=== PATIENT | male | born 1965 | race Caucasian/White ===

== ENCOUNTER 2022-01-13 12:56 | Inpatient (IN) | payer MEDICARE ==
[~2022-01-13] VITALS: Ht 172.7 cm; Wt 117.0 kg
[2022-01-13 14:18] LABS: HEMATOCRIT. 21.3 % (42.0-52.0); MEAN CORPUSCULAR HEMOGLOBIN 28.3 pg (28.0-32.0); MEAN CORPUSCULAR VOLUME 87.2 fL (80.0-94.0); MEAN PLATELET VOLUME 8.9 fl (7.4-10.4); PLATELET 150 x1000/uL (130-400); RED BLOOD CELL COUNT 2.44 mill/uL (4.7-6.1); RED CELL DISTRIBUTION WIDTH 15.1 % (11.6-14.6)
[2022-01-13 14:21] LABS: HEMOGLOBIN. 6.9 g/dL (14.0-18.0)
[2022-01-13 14:30] LABS: INR 1.2; PROTHROMBIN TIME 12.3 sec (9.6-11.0)
[2022-01-13 14:32] LABS: CHLORIDE 100 mEq/L (98-107)
[2022-01-13 15:09] LABS: PLATELET ESTIMATE NORMAL
[2022-01-13] MEDS ORDERED: MANNITOL 12.5G (25%) VIAL 50ML IV NR (17:00)
[2022-01-13] MEDS ORDERED: ASPIRIN 81MG TABLET PO NR (17:15)
[2022-01-13] MEDS ORDERED: LORAZEPAM 1MG TABLET PO PRN (17:15)
[2022-01-13 17:40] VITALS: BP 142/71
[2022-01-13] MEDS ORDERED: CEFTRIAXONE 1 G PREMIX 50 ML IV ONE (18:00)
[2022-01-13] MEDS ORDERED: CARVEDILOL 12.5MG TABLET PO NR (18:00)
[2022-01-13] MEDS: CLOPIDOGREL 75MG TABLET PO SCH (18:29)
[2022-01-13 20:00] VITALS: BP_SYST 155; BP_SYST 185; BP_DIAS 60; BP_DIAS 87
[2022-01-13] MEDS ORDERED: CEFTRIAXONE 1,000 MG in DEXTROSE 5% WATER 50 ML IV SCH (20:00)
[2022-01-13 21:02] LABS: HEMATOCRIT 20.1 % (42.0-52.0); HEMOGLOBIN 6.6 g/dL (14.0-18.0)
[2022-01-13 21:36] LABS: HEPATITIS B SURFACE ANTIGEN NEGATIVE
[2022-01-13 22:55] VITALS: BP 153/61
[2022-01-13 23:10] VITALS: BP 155/60
[2022-01-14] VITALS (10 sets, daily range): BP systolic 104–185; BP diastolic 59–87
[2022-01-14] MEDS: FUROSEMIDE 20MG TABLET PO SCH ×3 (00:25→20:43)
[2022-01-14] MEDS: ATORVASTATIN CALCIUM 20MG TABLET PO SCH ×2 (00:25→20:43)
[2022-01-14] MEDS: HYDRALAZINE HCL 10MG TABLET PO SCH ×4 (00:25→22:00)
[2022-01-14 00:57] LABS: HEMATOCRIT 22.6 % (42.0-52.0); HEMOGLOBIN 7.8 g/dL (14.0-18.0)
[2022-01-14 01:49] LABS: INR 1.1; PROTHROMBIN TIME 11.9 sec (9.6-11.0)
[2022-01-14] MEDS: PANTOPRAZOLE 40MG DR TABLET PO SCH (06:23)
[2022-01-14 06:49] LABS: MEAN CORPUSCULAR HEMOGLOBIN 28.4 pg (28.0-32.0); MEAN CORPUSCULAR VOLUME 85.3 fL (80.0-94.0); MEAN PLATELET VOLUME 8.8 fl (7.4-10.4); PLATELET 148 x1000/uL (130-400); RED BLOOD CELL COUNT 2.45 mill/uL (4.7-6.1); RED CELL DISTRIBUTION WIDTH 14.6 % (11.6-14.6)
[2022-01-14 06:51] LABS: CHLORIDE 101 mEq/L (98-107)
[2022-01-14 06:55] LABS: HEMATOCRIT. 20.9 % (42.0-52.0); HEMOGLOBIN. 6.9 g/dL (14.0-18.0)
[2022-01-14 07:09] LABS: CREATINE KINASE 549 IU/L (39-308); PHOSPHORUS 6.6 mg/dL (2.5-4.9)
[2022-01-14] MEDS ORDERED: CARVEDILOL 12.5MG TABLET PO SCH (08:00)
[2022-01-14] MEDS: LOSARTAN POTASSIUM 25 MG TABLET PO SCH (09:00)
[2022-01-14] MEDS: ISOSORBIDE DINITRATE 10MG TABLET PO SCH ×3 (09:00→18:41)
[2022-01-14] MEDS: CLOPIDOGREL 75MG TABLET PO SCH (09:13)
[2022-01-14] MEDS: SEVELAMER CARBONATE 800 MG TABLET PO SCH ×3 (09:14→18:41)
[2022-01-14 10:16] LABS: PLATELET ESTIMATE NORMAL
[2022-01-14 17:47] LABS: MEAN CORPUSCULAR HEMOGLOBIN 28.7 pg (28.0-32.0); MEAN CORPUSCULAR VOLUME 85.3 fL (80.0-94.0); MEAN PLATELET VOLUME 8.3 fl (7.4-10.4); PLATELET 149 x1000/uL (130-400); RED BLOOD CELL COUNT 2.35 mill/uL (4.7-6.1)
[2022-01-14 17:51] LABS: HEMOGLOBIN. 6.8 g/dL (14.0-18.0)
[2022-01-14 17:52] LABS: HEMATOCRIT. 20.1 % (42.0-52.0)
[2022-01-14 22:20] LABS: PLATELET ESTIMATE NORMAL
[2022-01-15] VITALS: BP 131/61
[2022-01-15 02:40] LABS: HEMATOCRIT. 23.8 % (42.0-52.0); HEMOGLOBIN. 7.9 g/dL (14.0-18.0); MEAN CORPUSCULAR HEMOGLOBIN 28.5 pg (28.0-32.0); MEAN CORPUSCULAR VOLUME 85.8 fL (80.0-94.0); MEAN PLATELET VOLUME 8.3 fl (7.4-10.4); PLATELET 149 x1000/uL (130-400); RED BLOOD CELL COUNT 2.77 mill/uL (4.7-6.1); RED CELL DISTRIBUTION WIDTH 14.8 % (11.6-14.6)
[2022-01-15 03:30] LABS: INR 1.2; PROTHROMBIN TIME 12.5 sec (9.6-11.0)
[2022-01-15 04:00] VITALS: BP 144/81
[2022-01-15] MEDS: HYDRALAZINE HCL 10MG TABLET PO SCH ×3 (05:14→21:41)
[2022-01-15] MEDS: PANTOPRAZOLE 40MG DR TABLET PO SCH (06:11)
[2022-01-15 08:00] VITALS: BP 141/67
[2022-01-15 08:28] LABS: HEMOGLOBIN 7.9 g/dL (14.0-18.0)
[2022-01-15] MEDS ORDERED: CARVEDILOL 3.125 MG TABLET PO SCH (09:00)
[2022-01-15] MEDS: SEVELAMER CARBONATE 800 MG TABLET PO SCH ×3 (09:19→17:45)
[2022-01-15] MEDS: CLOPIDOGREL 75MG TABLET PO SCH (09:20)
[2022-01-15] MEDS: FUROSEMIDE 20MG TABLET PO SCH ×2 (09:20→21:41)
[2022-01-15] MEDS: ISOSORBIDE DINITRATE 10MG TABLET PO SCH ×3 (09:20→18:09)
[2022-01-15] MEDS: LOSARTAN POTASSIUM 25 MG TABLET PO SCH (09:20)
[2022-01-15 10:34] LABS: PLATELET ESTIMATE NORMAL
[2022-01-15 12:00] VITALS: BP 148/98
[2022-01-15] MEDS ORDERED: DOCUSATE SODIUM 100MG CAPSULE PO SCH (13:00)
[2022-01-15 16:00] VITALS: BP 117/79
[2022-01-15] MEDS: CARVEDILOL 6.25 MG TABLET PO SCH ×2 (17:45→21:41)
[2022-01-15 20:00] VITALS: BP 133/72
[2022-01-15 20:22] LABS: HEMATOCRIT 22.9 % (42.0-52.0); HEMOGLOBIN 7.4 g/dL (14.0-18.0)
[2022-01-15 20:46] LABS: TOTAL IRON BINDING CAPACITY 221 ug/dL (250-450)
[2022-01-15 21:13] LABS: FOLIC ACID (FOLATE) SERUM 4.6 ng/mL (>5.38)
[2022-01-15] MEDS: ATORVASTATIN CALCIUM 20MG TABLET PO SCH (21:40)
[2022-01-16] VITALS (9 sets, daily range): BP systolic 111–148; BP diastolic 67–86
[2022-01-16 03:05] LABS: BASOPHILS % 0.7 % (0.0-2.0); EOSINOPHILS % 2.9 % (0.0-5.0); HEMATOCRIT. 21.5 % (42.0-52.0); HEMOGLOBIN. 7.1 g/dL (14.0-18.0); LYMPHOCYTES % 9.1 % (20.0-50.0); MEAN CORPUSCULAR HEMOGLOBIN 28.4 pg (28.0-32.0); MEAN CORPUSCULAR VOLUME 86.1 fL (80.0-94.0); MEAN PLATELET VOLUME 7.8 fl (7.4-10.4); MONOCYTES % 13.7 % (2.0-8.0); NEUTROPHILS % 73.6 % (40.0-76.0); PLATELET 128 x1000/uL (130-400); RED BLOOD CELL COUNT 2.49 mill/uL (4.7-6.1)
[2022-01-16 03:15] LABS: INR 1.2; PROTHROMBIN TIME 12.4 sec (9.6-11.0)
[2022-01-16] MEDS: PANTOPRAZOLE 40MG DR TABLET PO SCH (05:45)
[2022-01-16] MEDS: HYDRALAZINE HCL 10MG TABLET PO SCH ×3 (05:46→21:36)
[2022-01-16] MEDS: ISOSORBIDE DINITRATE 10MG TABLET PO SCH ×3 (09:00→17:27)
[2022-01-16] MEDS: LOSARTAN POTASSIUM 25 MG TABLET PO SCH (09:00)
[2022-01-16] MEDS ORDERED: DOCUSATE SODIUM 100MG CAPSULE PO SCH (09:00)
[2022-01-16] MEDS: CARVEDILOL 6.25 MG TABLET PO SCH ×2 (09:00→21:36)
[2022-01-16] MEDS: DOCUSATE SODIUM 250MG CAPSULE PO SCH ×2 (11:13→17:28)
[2022-01-16] MEDS: SEVELAMER CARBONATE 800 MG TABLET PO SCH ×3 (11:13→17:30)
[2022-01-16] MEDS: FUROSEMIDE 20MG TABLET PO SCH ×2 (11:13→21:37)
[2022-01-16] MEDS: CLOPIDOGREL 75MG TABLET PO SCH (11:29)
[2022-01-16] MEDS ORDERED: PROPOFOL 200MG/20ML VIAL IV ONE (11:59)
[2022-01-16] MEDS ORDERED: ONDANSETRON HCL 4MG/2ML INJ ONE (12:00)
[2022-01-16] MEDS ORDERED: DEXAMETHASONE 4MG/ML 1ML VIAL ONE (12:00)
[2022-01-16] MEDS ORDERED: MIDAZOLAM HCL 2 MG/2 ML VIAL ONE (12:01)
[2022-01-16 16:28] LABS: HEMATOCRIT 24.3 % (42.0-52.0); HEMOGLOBIN 8.2 g/dL (14.0-18.0)
[2022-01-16 20:28] LABS: HEMATOCRIT 28.1 % (42.0-52.0)
[2022-01-16] MEDS: ATORVASTATIN CALCIUM 20MG TABLET PO SCH (21:36)
[2022-01-16] MEDS: EPOETIN ALFA-EPBX 4,000 UNIT/ML VIAL SUBCUT SCH (21:48)
[2022-01-16] MEDS: LORAZEPAM 2MG/ML CPJ IV PRN (23:00)
[2022-01-17] VITALS: BP 115/62
[2022-01-17 04:00] VITALS: BP 96/57
[2022-01-17] MEDS: HYDRALAZINE HCL 10MG TABLET PO SCH ×3 (06:00→21:26)
[2022-01-17 06:31] LABS: HEMATOCRIT. 25.7 % (42.0-52.0); HEMOGLOBIN. 8.6 g/dL (14.0-18.0); MEAN CORPUSCULAR HEMOGLOBIN 29.1 pg (28.0-32.0); MEAN CORPUSCULAR VOLUME 86.9 fL (80.0-94.0); MEAN PLATELET VOLUME 8.4 fl (7.4-10.4); PLATELET 156 x1000/uL (130-400); RED BLOOD CELL COUNT 2.95 mill/uL (4.7-6.1); RED CELL DISTRIBUTION WIDTH 14.6 % (11.6-14.6)
[2022-01-17] MEDS: PANTOPRAZOLE 40MG DR TABLET PO SCH (06:40)
[2022-01-17 08:00] VITALS: BP 119/70
[2022-01-17] MEDS: SEVELAMER CARBONATE 800 MG TABLET PO SCH ×3 (08:03→17:47)
[2022-01-17] MEDS: DOCUSATE SODIUM 250MG CAPSULE PO SCH ×2 (08:54→17:47)
[2022-01-17] MEDS: CLOPIDOGREL 75MG TABLET PO SCH (08:55)
[2022-01-17] MEDS: CARVEDILOL 6.25 MG TABLET PO SCH ×2 (08:55→21:00)
[2022-01-17] MEDS: ISOSORBIDE DINITRATE 10MG TABLET PO SCH ×3 (08:55→17:47)
[2022-01-17] MEDS: LOSARTAN POTASSIUM 25 MG TABLET PO SCH (08:55)
[2022-01-17] MEDS: FUROSEMIDE 20MG TABLET PO SCH ×2 (08:56→21:24)
[2022-01-17 12:00] VITALS: BP 111/78
[2022-01-17 16:00] VITALS: BP 127/74
[2022-01-17 16:48] LABS: PLATELET ESTIMATE NORMAL
[2022-01-17] MEDS: ASCORBIC ACID 500 MG TABLET PO SCH (17:47)
[2022-01-17] MEDS: FERROUS SULFATE 325MG TABLET PO SCH (17:47)
[2022-01-17] MEDS ORDERED: BACITRACIN 15GM TUBE TOP PRN (18:00)
[2022-01-17 20:00] VITALS: BP 108/50
[2022-01-17] MEDS: ATORVASTATIN CALCIUM 20MG TABLET PO SCH (21:24)
[2022-01-17] MEDS: LORAZEPAM 2MG/ML CPJ IV PRN (21:24)
[2022-01-18] VITALS (36 sets, daily range): BP systolic 74–171; BP diastolic 49–115
[2022-01-18 07:09] LABS: BASOPHILS % 0.5 % (0.0-2.0); HEMOGLOBIN. 7.9 g/dL (14.0-18.0); LYMPHOCYTES % 8.3 % (20.0-50.0); MEAN CORPUSCULAR HEMOGLOBIN 29.1 pg (28.0-32.0); MEAN CORPUSCULAR VOLUME 87.6 fL (80.0-94.0); MEAN PLATELET VOLUME 8.3 fl (7.4-10.4); MONOCYTES % 9.9 % (2.0-8.0); NEUTROPHILS % 79.3 % (40.0-76.0); PLATELET 147 x1000/uL (130-400); RED BLOOD CELL COUNT 2.73 mill/uL (4.7-6.1); RED CELL DISTRIBUTION WIDTH 14.6 % (11.6-14.6)
[2022-01-18] MEDS ORDERED: VECURONIUM BROMIDE 10 MG/VIAL IV ONE (08:08)
[2022-01-18] MEDS ORDERED: SODIUM CHLORIDE 0.9% 10ML VIAL ONE (08:08)
[2022-01-18] MEDS ORDERED: ETOMIDATE 2MG/ML 10ML VIAL IV ONE (08:08)
[2022-01-18] MEDS: DOCUSATE SODIUM 250MG CAPSULE PO SCH ×2 (08:32→17:00)
[2022-01-18] MEDS: ISOSORBIDE DINITRATE 10MG TABLET PO SCH ×3 (08:32→17:31)
[2022-01-18] MEDS: LOSARTAN POTASSIUM 25 MG TABLET PO SCH (08:32)
[2022-01-18] MEDS: SEVELAMER CARBONATE 800 MG TABLET PO SCH ×3 (08:32→17:31)
[2022-01-18] MEDS: FUROSEMIDE 20MG TABLET PO SCH ×2 (08:33→21:11)
[2022-01-18] MEDS: ASCORBIC ACID 500 MG TABLET PO SCH ×2 (08:39→17:31)
[2022-01-18] MEDS: FERROUS SULFATE 325MG TABLET PO SCH ×2 (08:39→17:31)
[2022-01-18] MEDS: PANTOPRAZOLE 40MG DR TABLET PO SCH (08:46)
[2022-01-18] MEDS ORDERED: NICARDIPINE 100MCG/ML 10ML VIAL (CATH LAB) IV ONE (08:48)
[2022-01-18] MEDS ORDERED: NITROGLYCERIN 50MCG/ML 10ML VIAL (CATH LAB) IV ONE (08:48)
[2022-01-18] MEDS: CLOPIDOGREL 75MG TABLET PO SCH (08:50)
[2022-01-18] MEDS ORDERED: IODIXANOL 320MG/ML 100 ML BOTTLE IV ONE ×2 (08:58→10:15)
[2022-01-18] MEDS ORDERED: DIPHENHYDRAMINE 50MG/ML VIAL ONE (08:58)
[2022-01-18] MEDS ORDERED: FENTANYL CITRATE/PF 50MCG/ML 2ML VIAL ONE (08:59)
[2022-01-18] MEDS ORDERED: HEPARIN SODIUM 1,000 UNIT/1ML VIAL IV ONE (08:59)
[2022-01-18] MEDS ORDERED: MIDAZOLAM HCL 2 MG/2 ML VIAL ONE ×2 (09:00→09:41)
[2022-01-18] MEDS: CARVEDILOL 6.25 MG TABLET PO SCH (09:00)
[2022-01-18] MEDS ORDERED: HEPARIN 1000 UNITS/ML 10ML ONE ×2 (09:06→10:16)
[2022-01-18] MEDS ORDERED: LIDOCAINE HCL/PF 1% 10 MG/ML 5ML VIAL ONE (09:13)
[2022-01-18] MEDS ORDERED: ACETAMINOPHEN 325MG TABLET PO PRN (11:00)
[2022-01-18] MEDS ORDERED: ATROPINE SULFATE 1MG/10ML SYR IV PRN (11:00)
[2022-01-18] MEDS ORDERED: PRAS10TA9 PO (11:34)
[2022-01-18] MEDS ORDERED: HYDR-4133 PO (11:35)
[2022-01-18] MEDS ORDERED: LOSA25TA26 PO (11:36)
[2022-01-18] MEDS ORDERED: FURO20TA4 PO (11:36)
[2022-01-18] MEDS ORDERED: ATOR80TA PO (11:37)
[2022-01-18] MEDS ORDERED: CARV6.2548 PO (11:37)
[2022-01-18] MEDS ORDERED: ASPI-1497 PO (11:38)
[2022-01-18] MEDS ORDERED: ISOS5TAB4 PO (11:38)
[2022-01-18] MEDS ORDERED: SERT25TA74 PO (11:38)
[2022-01-18] MEDS ORDERED: TRAZ-251 PO (11:48)
[2022-01-18] MEDS ORDERED: SEVE800T8 PO (11:49)
[2022-01-18] MEDS ORDERED: POTASSIUM CHLORIDE INJ 40 MEQ in DEXT 5% WATER 250 ML IV ONE (12:30)
[2022-01-18] MEDS ORDERED: POTASSIUM CHLORIDE 20MEQ TABLET SR PO ONE ×2 (12:30)
[2022-01-18] MEDS: HYDRALAZINE HCL 10MG TABLET PO SCH (13:29)
[2022-01-18] MEDS ORDERED: FENTANYL 2500MCG/250ML PMX 250 ML IV PRN (14:45)
[2022-01-18] MEDS ORDERED: PROPOFOL 10MG/ML 100ML 100 ML IV PRN (15:00)
[2022-01-18 15:33] LABS: BG BASE EXCESS -8.1 mmol/L (-2.0-2.0); BG CARBOXYHEMOGLOBIN 0.2 % (0.5-1.5); BG DEOXYHEMOGLOBIN 3.9 % (0.0-5.0); BG FRACTION INSPIRED OXYGEN 50; BG HCO3 ACT 19.1 mmol/L (22.0-26.0); BG METHEMOGLOBIN 0.1 % (0.0-1.5); BG OXYGEN SATURATION 96.1 % (92.0-98.5); BG OXYHEMOGLOBIN 95.8 % (94.0-97.0); BG PCO2 47.2 mmHg (35.0-45.0); BG PH 7.226 (7.350-7.450); BG PO2 105.4 mmHg (75.0-100.0); BG SAMPLE SITE LEFT RADIAL; BG TOTAL HEMOGLOBIN 9.8 g/dL (12.0-18.0); BG VENT MODE VENT - AC
[2022-01-18] MEDS: PROPOFOL 10MG/ML 100ML 100 ML IV PRN ×2 (15:33→18:57)
[2022-01-18] MEDS ORDERED: SODIUM BICARBONATE 8.4% 1 MEQ/ML 50ML SYR IV NR (15:45)
[2022-01-18 16:20] LABS: HEMATOCRIT. 27.1 % (42.0-52.0); HEMOGLOBIN. 8.7 g/dL (14.0-18.0); MEAN CORPUSCULAR HEMOGLOBIN 28.5 pg (28.0-32.0); MEAN CORPUSCULAR VOLUME 88.9 fL (80.0-94.0); MEAN PLATELET VOLUME 8.1 fl (7.4-10.4); PLATELET 239 x1000/uL (130-400); RED BLOOD CELL COUNT 3.05 mill/uL (4.7-6.1)
[2022-01-18] MEDS ORDERED: NOREPINEPHRINE 8 MG in DEXT 5% WATER 242 ML IV PRN (16:45)
[2022-01-18 20:25] LABS: PLATELET ESTIMATE NORMAL
[2022-01-18] MEDS: ATORVASTATIN CALCIUM 20MG TABLET PO SCH (21:11)
[2022-01-18] MEDS: EPOETIN ALFA-EPBX 4,000 UNIT/ML VIAL SUBCUT SCH (21:12)
[2022-01-19] MEDS ORDERED: IPRATROPIUM/ALBUTEROL 0.5-3(2.5)MG/3ML NEB HHN SCH
[2022-01-19] MEDS ORDERED: EPINEPHRINE 0.1MG/ML (1:10,000) 10ML SYR ONE (08:08)
[2022-01-19] MEDS ORDERED: CALCIUM CHLORIDE 1GM/10ML SYR IV ONE (08:08)
[2022-01-19] MEDS ORDERED: SODIUM BICARBONATE 8.4% 1 MEQ/ML 50ML SYR IV ONE (08:08)
[2022-01-19] MEDS ORDERED: DEXTROSE 50% WATER 50ML SYRINGE IV ONE (08:08)
== END 2022-01-19 03:00 | DRG 250 ==
LOC: ER 13:36 → 8WST 15:35 → ENRESERV 15:51 → 5EST 01-18 11:31 → CVICU 01-18 15:00
PROVIDERS: ADMIT Hospitalist; ATTEND Hospitalist
PROC: 30233N1 Transfusion of Nonautologous Red Blood Cells into Peripheral Vein, Percutaneous Approach (ICD-10-PCS; principal; 2022-01-13)
PROC: 5A1D70Z Performance of Urinary Filtration, Intermittent, Less than 6 Hours Per Day (ICD-10-PCS; 2022-01-13)
PROC: 5A1D70Z Performance of Urinary Filtration, Intermittent, Less than 6 Hours Per Day (ICD-10-PCS; 2022-01-14)
PROC: 0DB78ZX Excision of Stomach, Pylorus, Via Natural or Artificial Opening Endoscopic, Diagnostic (ICD-10-PCS; 2022-01-16)
PROC: 5A1D70Z Performance of Urinary Filtration, Intermittent, Less than 6 Hours Per Day (ICD-10-PCS; 2022-01-16)
PROC: 4A023N7 Measurement of Cardiac Sampling and Pressure, Left Heart, Percutaneous Approach (ICD-10-PCS; 2022-01-18)
PROC: 02703ZZ Dilation of Coronary Artery, One Artery, Percutaneous Approach (ICD-10-PCS; 2022-01-18)
PROC: B2111ZZ Fluoroscopy of Multiple Coronary Arteries using Low Osmolar Contrast (ICD-10-PCS; 2022-01-18)
PROC: 0BH17EZ Insertion of Endotracheal Airway into Trachea, Via Natural or Artificial Opening (ICD-10-PCS; 2022-01-18)
PROC: 5A1935Z Respiratory Ventilation, Less than 24 Consecutive Hours (ICD-10-PCS; 2022-01-18)
PROC: 5A12012 Performance of Cardiac Output, Single, Manual (ICD-10-PCS; 2022-01-18)
DX: T82.855A Stenosis of coronary artery stent, initial encounter (principal); I21.4 Non-ST elevation (NSTEMI) myocardial infarction; I50.23 Acute on chronic systolic (congestive) heart failure; N18.6 End stage renal disease; J96.01 Acute respiratory failure with hypoxia; I13.2 Hypertensive heart and chronic kidney disease with heart failure and with stage 5 chronic kidney disease, or end stage renal disease; N17.9 Acute kidney failure, unspecified; L97.929 Non-pressure chronic ulcer of unspecified part of left lower leg with unspecified severity; E46 Unspecified protein-calorie malnutrition; I46.9 Cardiac arrest, cause unspecified; R94.31 Abnormal electrocardiogram [ECG] [EKG]; Z20.822 Contact with and (suspected) exposure to COVID-19; E11.22 Type 2 diabetes mellitus with diabetic chronic kidney disease; E11.319 Type 2 diabetes mellitus with unspecified diabetic retinopathy without macular edema; D63.1 Anemia in chronic kidney disease; E78.00 Pure hypercholesterolemia, unspecified; E83.51 Hypocalcemia; E83.39 Other disorders of phosphorus metabolism; E88.09 Other disorders of plasma-protein metabolism, not elsewhere classified; I25.10 Atherosclerotic heart disease of native coronary artery without angina pectoris; H54.7 Unspecified visual loss; E78.5 Hyperlipidemia, unspecified; I48.0 Paroxysmal atrial fibrillation; E87.5 Hyperkalemia; F19.90 Other psychoactive substance use, unspecified, uncomplicated; F41.9 Anxiety disorder, unspecified; S81.812A Laceration without foreign body, left lower leg, initial encounter; Z68.39 Body mass index [BMI] 39.0-39.9, adult; Z99.2 Dependence on renal dialysis; Z91.15 Patient's noncompliance with renal dialysis; Z95.5 Presence of coronary angioplasty implant and graft; Z91.19 Patient's noncompliance with other medical treatment and regimen; Z63.4 Disappearance and death of family member; Z80.51 Family history of malignant neoplasm of kidney; Z82.0 Family history of epilepsy and other diseases of the nervous system; R00.1 Bradycardia, unspecified; W01.0XXA Fall on same level from slipping, tripping and stumbling without subsequent striking against object, initial encounter; Y93.89 Activity, other specified; Y92.89 Other specified places as the place of occurrence of the external cause; Y99.8 Other external cause status; Y83.1 Surgical operation with implant of artificial internal device as the cause of abnormal reaction of the patient, or of later complication, without mention of misadventure at the time of the procedure
CPT/HCPCS: 31500; 36415; 36600; 71045; 73610; 73630; 80048; 80053; 82270; 82375; 82550; 82607; 82728; 82746; 82805; 82962; 83036; 83540; 83550; 83735; 83880; 84100; 84443; 84484; 85014; 85018; 85025; 85044; 85049; 85347; 85384; 86705; 86706; 86709; 86803; 86850; 86900; 86920; 86945; 87070; 87340; 87426; 88305; 88312; 88313; 92920; 92950; 92978; 93005; 93306; 93458; 93923; 93970; 94002; 97162; 99285; C1753; C1760; C1769; C1887; C1893; J0696; J0885; J1100; J1200; J1644; J2060; J2150; J2250; J2405; J2704; J3010; J3490; J7060; P9016; Q9967